=== PATIENT | female | born 1980 | race African-American/Black ===

== ENCOUNTER 2021-05-01 19:57 | Emergency (ER) | payer OTHER ==
[2021-05-01 20:33] VITALS: BP 175/81; PULSE 87; TEMP 98; BMI 34.8
== END 2021-05-01 22:07 | disposition home or self-care (01) ==
LOC: JERFT 19:57
DX: R22.32 Localized swelling, mass and lump, left upper limb (principal); S33.5XXA Sprain of ligaments of lumbar spine, initial encounter
CPT/HCPCS: 72100-TC-FY; 99283-25

== ENCOUNTER 2021-05-17 11:49 | Emergency (ER) | payer OTHER ==
[2021-05-17 12:10] VITALS: BMI 41.1
[2021-05-17] MEDS ORDERED: ACETAMINOPHEN 500 MG TABLET (FP) PO ONE (13:17)
[2021-05-17] MEDS ORDERED: ACETAMINOPHEN 500 MG TABLET (FP) ONE (13:47)
[2021-05-17 14:09] LABS: BASO % 0.9 % (0-2.0); EOS % 1.4 % (0-4.5); HEMATOCRIT 43.7 % (32.4-45.2); HEMOGLOBIN 13.7 GM/dL (10.7-15.3); LYMPH % 15.9 % (8-40); MCH 24.9 pg (25.7-33.7); MCHC 31.4 g/dl (32.0-36.0); MEAN CELL VOLUME 79.4 fl (80-96); MEAN PLT VOLUME 7.8 fl (7.5-11.1); MONO % 7.4 % (3.8-10.2); NEUT % 74.4 % (42.8-82.8); PLATELET COUNT 407 10^3/uL (134-434); RDW 20.2 % (11.6-15.6); WHITE BLOOD COUNT 11.1 K/mm3 (4.0-10.0)
[2021-05-17 14:34] LABS: CALCIUM 9.6 mg/dL (8.5-10.1)
[2021-05-17 14:35] LABS: ALBUMIN 3.1 g/dl (3.4-5.0); BLOOD UREA NITROGEN 36.2 mg/dL (7-18)
[2021-05-17 14:38] LABS: CREATININE 1.7 mg/dL (0.55-1.3)
[2021-05-17 14:40] LABS: BILIRUBIN,TOTAL 0.5 mg/dL (0.2-1); TOT PROT 7.2 g/dl (6.4-8.2)
[2021-05-17 15:27] VITALS: BP 188/104; PULSE 82; TEMP 97.9
[2021-05-17 15:51] LABS: ANISOCYTOSIS 1+; MACROCYTOSIS 0; OVALOCYTE 1+; PLATELET ESTIMATE NORMAL; TARGET CELLS 1+
[2021-05-17] MEDS ORDERED: CEPHALEXIN MONOHYDRATE 500 MG CAPSULE (UD) PO ONE (16:03)
[2021-05-17] MEDS ORDERED: CEPHALEXIN MONOHYDRATE 500 MG CAPSULE (UD) ONE (16:07)
== END 2021-05-17 16:13 | disposition home or self-care (01) ==
LOC: JER 11:49
DX: L03.114 Cellulitis of left upper limb (principal)
CPT/HCPCS: 36415; 80053; 82962; 85025; 93971; 99284-25

== ENCOUNTER 2021-05-22 11:26 | Emergency (ER) | payer OTHER ==
[2021-05-22 11:45] VITALS: BMI 41.1
[2021-05-22 13:31] LABS: BASO % 0.7 % (0-2.0); EOS % 1.3 % (0-4.5); HEMOGLOBIN 13.9 GM/dL (10.7-15.3); LYMPH % 12.7 % (8-40); MCH 25.5 pg (25.7-33.7); MCHC 31.6 g/dl (32.0-36.0); MEAN CELL VOLUME 80.7 fl (80-96); MEAN PLT VOLUME 7.6 fl (7.5-11.1); MONO % 4.7 % (3.8-10.2); NEUT % 80.6 % (42.8-82.8); PLATELET COUNT 373 10^3/uL (134-434); RBC 5.46 M/mm3 (3.60-5.2); RDW 19.8 % (11.6-15.6); WHITE BLOOD COUNT 9.6 K/mm3 (4.0-10.0)
[2021-05-22 13:48] LABS: EPI CELLS 35 /uL (0-25.1); HYALINE CASTS 3 /uL (0-3.1); PH,URINE 5.5 (5.0-8.0); URINE APPEARANCE CLOUDY; URINE BACTERIA 4 /uL (0-1359); URINE BILIRUBIN NEGATIVE (NEGATIVE); URINE COLOR YELLOW; URINE GLUCOSE (UA) NEGATIVE (NEGATIVE); URINE KETONE TRACE (NEGATIVE); URINE LEUK ESTERASE NEGATIVE (NEGATIVE); URINE NITRITE NEGATIVE (NEGATIVE); URINE PROTEIN 3+ (NEGATIVE); URINE RBC 16 /uL (0-23.9); URINE WBC 9 /uL (0-25.8)
[2021-05-22 14:00] LABS: CALCIUM 9.2 mg/dL (8.5-10.1); URINE CRYSTALS NON SEEN /hpf
[2021-05-22 14:01] LABS: ALBUMIN 3.4 g/dl (3.4-5.0); BLOOD UREA NITROGEN 21.4 mg/dL (7-18)
[2021-05-22 14:04] LABS: CREATININE 1.4 mg/dL (0.55-1.3)
[2021-05-22 14:05] LABS: BILIRUBIN,TOTAL 0.4 mg/dL (0.2-1)
[2021-05-22 14:06] LABS: TOT PROT 7.4 g/dl (6.4-8.2)
[2021-05-22] MEDS ORDERED: SODIUM CHLORIDE 0.9% 1000 ML INFUS.BAG IV ONE (16:37)
[2021-05-22 18:16] VITALS: BP 176/90; PULSE 76; TEMP 98.6
== END 2021-05-22 20:10 | disposition home or self-care (01) ==
LOC: JER 11:26
DX: S39.012A Strain of muscle, fascia and tendon of lower back, initial encounter (principal)
CPT/HCPCS: 36415; 72131-TC; 74176-TC; 76937; 80053; 81003; 84703; 85025; 99285-25

== ENCOUNTER 2021-09-06 11:25 | Emergency (ER) | payer OTHER ==
[2021-09-06 11:37] VITALS: TEMP 98.3; BMI 41.1
[2021-09-06] MEDS ORDERED: METHOCARBAMOL 500 MG TABLET PO ONE (13:05)
[2021-09-06] MEDS ORDERED: KETOROLAC TROMETHAMINE 30 MG/1 ML VIAL IM ONE (13:05)
[2021-09-06] MEDS ORDERED: METHOCARBAMOL 500 MG TABLET ONE (13:12)
[2021-09-06] MEDS ORDERED: KETOROLAC TROMETHAMINE 30 MG/1 ML VIAL ONE (13:12)
[2021-09-06 14:38] VITALS: BP 160/80; PULSE 76
== END 2021-09-06 14:37 | disposition home or self-care (01) ==
LOC: JERFT 11:25
PROC: 3E0233Z Introduction of Anti-inflammatory into Muscle, Percutaneous Approach (ICD-10-PCS; principal; 2021-09-06)
DX: J20.9 Acute bronchitis, unspecified (principal); M54.41 Lumbago with sciatica, right side
CPT/HCPCS: 71046-TC-FY; 96372; 99284-25

== ENCOUNTER 2021-09-07 18:28 | Emergency (ER) | payer OTHER ==
[2021-09-07 18:52] VITALS: BP 154/106; PULSE 92; TEMP 98.1; BMI 37.8
[2021-09-07] MEDS ORDERED: KETOROLAC TROMETHAMINE 60 MG/2 ML VIAL IM ONE (19:49)
[2021-09-07] MEDS ORDERED: KETOROLAC TROMETHAMINE 60 MG/2 ML VIAL ONE ×2 (19:51→20:07)
== END 2021-09-07 20:31 | disposition home or self-care (01) ==
LOC: JER 18:28
PROC: 3E0233Z Introduction of Anti-inflammatory into Muscle, Percutaneous Approach (ICD-10-PCS; principal; 2021-09-07)
DX: M54.50 Low back pain, unspecified (principal); G89.29 Other chronic pain
CPT/HCPCS: 96372; 99283-25

== ENCOUNTER 2021-12-09 13:34 | Emergency (ER) | payer OTHER ==
[2021-12-09 13:47] VITALS: BMI 29.2
[2021-12-09] MEDS ORDERED: amLODIPine BESYLATE 10 MG TABLET (FP) PO ONE (15:25)
[2021-12-09] MEDS ORDERED: dilTIAZem HCL 30 MG TABLET PO ONE (15:25)
[2021-12-09] MEDS ORDERED: ACETAMINOPHEN 325 MG TABLET (FP) PO ONE (15:26)
[2021-12-09] MEDS ORDERED: amLODIPine BESYLATE 5 MG TABLET (FP) ONE (15:38)
[2021-12-09] MEDS ORDERED: dilTIAZem HCL 30 MG TABLET ONE (15:38)
[2021-12-09] MEDS ORDERED: ACETAMINOPHEN 325 MG TABLET (FP) ONE (15:39)
[2021-12-09] MEDS ORDERED: SODIUM CHLORIDE 1,000 ML IV STA (16:57)
[2021-12-09 17:13] LABS: BASO % 0.5 % (0-2.0); EOS % 0.4 % (0-4.5); HEMATOCRIT 42.7 % (32.4-45.2); HEMOGLOBIN 13.6 GM/dL (10.7-15.3); LYMPH % 10.5 % (8-40); MCH 28.6 pg (25.7-33.7); MCHC 31.8 g/dl (32.0-36.0); MEAN CELL VOLUME 89.9 fl (80-96); MEAN PLT VOLUME 8.6 fl (7.5-11.1); MONO % 8.7 % (3.8-10.2); NEUT % 79.9 % (42.8-82.8); PLATELET COUNT 333 10^3/uL (134-434); RBC 4.75 M/mm3 (3.60-5.2); RDW 17.9 % (11.6-15.6); WHITE BLOOD COUNT 9.4 K/mm3 (4.0-10.0)
[2021-12-09 17:40] LABS: CALCIUM 9.8 mg/dL (8.5-10.1)
[2021-12-09 17:41] LABS: ALBUMIN 3.1 g/dl (3.4-5.0); BLOOD UREA NITROGEN 25.8 mg/dL (7-18)
[2021-12-09 17:44] LABS: CREATININE 2.3 mg/dL (0.55-1.3)
[2021-12-09 17:45] LABS: BILIRUBIN,TOTAL 0.7 mg/dL (0.2-1); TOT PROT 7.6 g/dl (6.4-8.2)
[2021-12-09 18:33] LABS: EPI CELLS 31 /uL (0-25.1); HYALINE CASTS 0 /uL (0-3.1); PH,URINE 7.5 (5.0-8.0); URINE APPEARANCE CLEAR; URINE BACTERIA 228 /uL (0-1359); URINE BILIRUBIN NEGATIVE (NEGATIVE); URINE COLOR YELLOW; URINE GLUCOSE (UA) 3+ (NEGATIVE); URINE KETONE NEGATIVE (NEGATIVE); URINE LEUK ESTERASE NEGATIVE (NEGATIVE); URINE NITRITE NEGATIVE (NEGATIVE); URINE PROTEIN 3+ (NEGATIVE); URINE RBC 11 /uL (0-23.9); URINE UROBILINOGEN 0.2 mg/dL (0.2-1.0); URINE WBC 12 /uL (0-25.8)
[2021-12-09 19:05] LABS: HCG,QUALITATIVE URINE Negative
[2021-12-09] MEDS ORDERED: morphine CARPU-JECT 4 MG/1 ML DISP.SYRIN IVPUSH ONE (19:09)
[2021-12-09] MEDS ORDERED: morphine SULFATE 4 MG/ML VIAL ONE (19:11)
[2021-12-09] MEDS ORDERED: SODIUM CHLORIDE 0.9% 500 ML INFUS.BAG IV ONE (19:56)
[2021-12-09 21:16] LABS: VENOUS BASE EXCESS 4.1 mmol/L (-2-2); VENOUS O2 SATURATION 86.8 % (70-80); VENOUS PCO2 44.5 mmHg (38-52); VENOUS PH 7.433 (7.310-7.410)
[2021-12-09 21:41] LABS: CALCIUM 8.9 mg/dL (8.5-10.1)
[2021-12-09 21:42] LABS: BLOOD UREA NITROGEN 25.2 mg/dL (7-18)
[2021-12-09 21:45] LABS: CREATININE 2.1 mg/dL (0.55-1.3)
[2021-12-09] MEDS ORDERED: INSULIN (NOVOLOG) ASPART 100 UNITS/ML 10ML VIAL SQ ONE (22:04)
[2021-12-09] MEDS ORDERED: MEROPENEM 1 GM in DEXTROSE 5%-WATER 100 ML IVPB ONE (22:13)
[2021-12-09 22:33] VITALS: BP 168/89; PULSE 86; TEMP 98.9
== END 2021-12-09 22:33 | disposition home or self-care (01) ==
LOC: JER 13:34
PROC: 3E033NZ Introduction of Analgesics, Hypnotics, Sedatives into Peripheral Vein, Percutaneous Approach (ICD-10-PCS; principal; 2021-12-09)
PROC: 3E0337Z Introduction of Electrolytic and Water Balance Substance into Peripheral Vein, Percutaneous Approach (ICD-10-PCS; 2021-12-09)
DX: R10.9 Unspecified abdominal pain (principal)
CPT/HCPCS: 36415; 73562-TC-RT-FY; 74176-TC; 80048; 80053; 81003; 82803; 82962; 84703; 85025; 87086; 93005; 93010; 96361; 96374; 99285-25